=== PATIENT | female | born 1990 | race Caucasian/White ===

== ENCOUNTER 2019-04-12 10:04 | Emergency (ER) | payer OTHER ==
[~2019-04-12] VITALS: Ht 157.5 cm; Wt 52.2 kg
[~2019-04-12 10:04] MED LIST: BENADRYL25 MG PO
[2019-04-12] MEDS ORDERED: ARANELLE PO (10:19)
== END 2019-04-12 11:34 | disposition home or self-care (01) ==
LOC: ED 10:04
DX: G43.109 Migraine with aura, not intractable, without status migrainosus (principal); Z88.2 Allergy status to sulfonamides; Z88.5 Allergy status to narcotic agent; Z79.899 Other long term (current) drug therapy
CPT/HCPCS: 96361; 96374; 96375; 99283-25; J1200; J2765; J7030

== ENCOUNTER 2023-02-26 07:13 | Day surgery (SDC) | payer OTHER ==
[2023-02-19 09:08] VITALS: BP 124/80
[~2023-02-26] VITALS: Ht 157.5 cm; Wt 60.0 kg
[~2023-02-26 07:13] MED LIST changes: +ARANELLE PO; +OMEPRAZOLE20 MG PO
[2023-02-26 07:32] VITALS: BP 121/66
[2023-02-26] MEDS ORDERED: PRENATA CHEWAB1 EACH PO (07:34)
[2023-02-26] MEDS ORDERED: HEALTHY HEART1 EACH PO (07:35)
[2023-02-26 12:02] VITALS: BP 105/71
--- NOTE | 2023-02-26 12:04 | NUR ---
02/26/23 1204 Hue Saab 1103 PT ARRIVED IN PACU WIDE AWAKE WITH NO C/O'S. 1115 C/O FEELING COLD. WARM AIR ON AND ICE PACK TO JULEE AREA. 1130 DC INSTRUCTIONS GIVEN. ALL QUESTIONS ANSWERED. 1147 LEFT VIA W/C. INSTRUCTIONS GIVEN TO SPOUSE AT CAR.
[2023-02-27] MEDS ORDERED: HYDROCODON-ACE1 EA10 PO (04:38)
[2023-02-27] MEDS ORDERED: IBUPROFEN800 MG PO ×2 (04:38→18:07)
[2023-02-27] MEDS ORDERED: ONDANSETRON ODT4 MG PO (06:02)
[2023-02-27] MEDS ORDERED: ACETAMINOPHEN500 MG PO (18:08)
[2023-02-27] MEDS ORDERED: STIMULANT LAXA1 EACH PO (18:09)
--- NOTE | 2023-03-14 21:07 | OR ---
[facility] [address] [place], [place] [address] Signed DATE OF OPERATION: 02/26/2023 SURGEON: Lucie Aguilar DO PREOPERATIVE DIAGNOSIS: Dyspareunia secondary to vulvar and perineal scarring from prior obstetrical injury. POSTOPERATIVE DIAGNOSES: Dyspareunia secondary to vulvar and perineal scarring from prior obstetrical injury. PROCEDURES PERFORMED: Perineorrhaphy. CRIMINAL JUDGE: None. ANESTHESIA: MAC with local anesthetic. ESTIMATED BLOOD LOSS: 5 mL. SPECIMENS: None. DRAINS: None. FINDINGS: The patient with external genitalia notable for posterior fourchette disconnected from the labia bilaterally creating loose folds of skin consistent with symptoms of dyspareunia. Otherwise normal clitoris, urethral meatus, bilateral Nebo's, and Bartholin's glands with normal perineum. She does have some hemorrhoid tissue at the anus. Postoperatively rastafari of normal anatomy. COMPLICATIONS: None. INDICATIONS: Ms. Forrester is a very pleasant 32-year-old female who presents with a long history of Electronically Signed By: LUCIE AGUILAR DO (JD) 03/14/232106 PATIENT NAME: STACIE FORRESTER OPERATIVE REPORT DATE OF : 86 REPORT #: [id number] PHYSICIAN: LUCIE AGUILAR DO (JD) PCP: NENA CLEMENTE PAC REPORT IS CONFIDENTIAL AND NOT TO BE RELEASED WITHOUT AUTHORIZATION [facility] [address] [place], [place] [address] Signed dyspareunia. The patient with a complex obstetrical laceration with resulting vulvar and perineal scarring causing disruption with intimacy. The patient was consented for perineorrhaphy and possible labiaplasty to restore normal anatomy. Risks, benefits, and alternatives were discussed in detail with the patient. The patient understands and wishes to proceed with the procedure. TECHNIQUE: The patient was taken to the OR where a time-out was performed to confirm correct patient and correct procedure. MAC anesthesia was adequately established. The patient was prepped and draped in dorsal lithotomy position with feet in Yellofin stirrups. ICPs were on and running and no preoperative antibiotics or heparin were indicated. The bladder was drained. The perineum was infiltrated with 0.25% Marcaine with epinephrine. The introitus was grasped with Allis clamps and perineorrhaphy was performed using surgical scalpel in an inverted triangle, dissecting from just superior to the anal verge to the edges of the introitus bilaterally. Perineal skin was excised and bleeding was made hemostatic with Bovie electrocautery. Perineorrhaphy was then completed by plicating the edges of the dissection using 0 Vicryl in a running nonlocked manner. This restored normal introitus while maintaining [id number]-half fingerbreadth caliber of the introitus. The perineum was again plicated with 0 Vicryl and the perineal skin was then repaired using 2-0 Vicryl in a running subcuticular stitch with excellent hemostasis. Normal anatomic architecture had been restored. The patient was then taken to the PACU in good and stable condition. Sponge, needle, and instrument count was correct x2. DO EDUARDO Wright/MODL /[id number] Copies: ~ Electronically Signed By: LUCIE AGUILAR DO (JD) 03/14/23 2107 PATIENT NAME: STACIE FORRESTER OPERATIVE REPORT DATE OF : 86 REPORT #: [id number] PHYSICIAN: LUCIE AGUILAR DO (JD) PCP: NENA CLEMENTE PAC REPORT IS CONFIDENTIAL AND NOT TO BE RELEASED WITHOUT AUTHORIZATION
== END 2023-02-26 11:47 | disposition home or self-care (01) ==
LOC: DS 07:13 → OPS 07:13 → DS 09:00 → OPS 10:00
PROVIDERS: ATTEND Obstetrics & Gynecology
PROC: 0WQN0ZZ Repair Female Perineum, Open Approach (ICD-10-PCS; principal; 2023-02-26 10:00)
DX: N90.89 Other specified noninflammatory disorders of vulva and perineum (principal); N94.10 Unspecified dyspareunia
CPT/HCPCS: 00942; J1790; J2001; J2250; J2704; J7121

== ENCOUNTER 2024-08-25 18:36 | Emergency (ER) | payer OTHER ==
[~2024-08-25] VITALS: Ht 160 cm; Wt 61.0 kg
[~2024-08-25 18:36] MED LIST changes: +ACETAMINOPHEN500 MG PO; +HEALTHY HEART1 EACH PO; +HYDROCODON-ACE1 EA10 PO; +IBUPROFEN800 MG PO; +ONDANSETRON ODT4 MG PO; +PRENATA CHEWAB1 EACH PO; +STIMULANT LAXA1 EACH PO
[2024-08-25] MEDS ORDERED: KOSHER PRENATA1 EACH PO (18:52)
[2024-08-25] MEDS ORDERED: SILVER SULFADIAZINE 400 GM HOME.PACK TOP ONE (19:45)
[2024-08-25 21:04] VITALS: BP 106/75
== END 2024-08-25 21:05 | disposition home or self-care (01) ==
LOC: ED 18:36
DX: T24.201A Burn of second degree of unspecified site of right lower limb, except ankle and foot, initial encounter (principal); T31.0 Burns involving less than 10% of body surface; X08.8XXA Exposure to other specified smoke, fire and flames, initial encounter; Z79.899 Other long term (current) drug therapy; Z88.5 Allergy status to narcotic agent; Z88.8 Allergy status to other drugs, medicaments and biological substances
CPT/HCPCS: 16000; 99283